=== PATIENT | female | born 1980 | race Caucasian/White ===

== ENCOUNTER → 2016-07-25 | Outpatient (CLI) | payer OTHER ==
[~2016-07-25] MED LIST: "\\\"ANTIBIOTIC\\\""; CLONIDINE; CLONIDINE PO; EC-NAPROSYN500 MG PO; FLEXERIL PO; IBUPROFEN800 MG PO; KEPPRA500 MG; KEPPRA750 M1; KLONOPIN PO; LAMICTAL; LOESTRIN FE 1.51 TAB PO; MEDROL PO; NASONEX17 GM; NEURONTIN; NO MEDICATIONS; PRENATAL MULITV1 TAB PO; PROZAC PO; RELAFEN PO; REMERON; SKELAXIN PO; TOPAMAX; TYLENOL #3 PO; ULTRAM PO; VICODIN 5/500 T1 TAB PO; VOLTAREN75 MG; ZANTAC PO; ZITHROMAX PO; ZOLOFT; [UNRECOGNIZED DRUG - REMARK]; [UNRECOGNIZED DRUG - REMARK]
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
== END | disposition home or self-care (01) ==
LOC: CMRI 07:45
DX: R56.9 Unspecified convulsions (principal)
CPT/HCPCS: 70553; A9577

== ENCOUNTER 2016-08-17 18:11 | Emergency (ER) | payer OTHER ==
[~2016-08-17 18:11] MED LIST changes: -"\\\"ANTIBIOTIC\\\""; -KEPPRA500 MG; -LAMICTAL; -REMERON; -VOLTAREN75 MG
== END 2016-08-17 19:05 | disposition home or self-care (01) ==
LOC: CED 18:11
DX: L02.415 Cutaneous abscess of right lower limb (principal); B19.20 Unspecified viral hepatitis C without hepatic coma; F17.210 Nicotine dependence, cigarettes, uncomplicated; Z90.49 Acquired absence of other specified parts of digestive tract; Z88.5 Allergy status to narcotic agent; Z88.8 Allergy status to other drugs, medicaments and biological substances
CPT/HCPCS: 10060; 99283

== ENCOUNTER 2016-08-19 10:08 | Emergency (ER) | payer OTHER | END 2016-08-19 10:48 | disposition home or self-care (01) | LOC: CFTX 10:08 | DX: Z48.01 Encounter for change or removal of surgical wound dressing (principal); F17.210 Nicotine dependence, cigarettes, uncomplicated; Z88.5 Allergy status to narcotic agent; Z88.8 Allergy status to other drugs, medicaments and biological substances | CPT/HCPCS: 99282 ==

== ENCOUNTER 2016-09-21 18:20 | Emergency (ER) | payer OTHER ==
[2016-09-21] MEDS ORDERED: KEPPRA500 MG (18:27)
[2016-09-21] MEDS ORDERED: NEURONTIN (18:27)
[2016-09-21] MEDS ORDERED: CLONIDINE (18:27)
[2016-09-21] MEDS ORDERED: ZOLOFT (18:27)
[2016-09-21] MEDS ORDERED: REMERON (18:28)
[2016-09-21] MEDS ORDERED: "\\\"ANTIBIOTIC\\\"" (18:28)
[2016-09-21] MEDS ORDERED: LAMICTAL (18:28)
[2016-09-21] MEDS ORDERED: VOLTAREN75 MG (18:28)
== END 2016-09-21 19:12 | disposition home or self-care (01) ==
LOC: SED 18:20
DX: L02.413 Cutaneous abscess of right upper limb (principal); B19.20 Unspecified viral hepatitis C without hepatic coma; F17.210 Nicotine dependence, cigarettes, uncomplicated; Z85.41 Personal history of malignant neoplasm of cervix uteri; Z90.49 Acquired absence of other specified parts of digestive tract; Z88.5 Allergy status to narcotic agent; Z88.8 Allergy status to other drugs, medicaments and biological substances
CPT/HCPCS: 10060; 99283